=== PATIENT | female | born 1970 | race Caucasian/White ===

== ENCOUNTER 2020-12-04 20:08 | Emergency (ER) | payer OTHER ==
[2020-12-04 20:32] VITALS: BP 156/83; PULSE 105; BMI 61.4
== END 2020-12-04 22:38 | disposition left against medical advice (07) ==
LOC: JER 20:08
DX: N61.1 Abscess of the breast and nipple (principal)
CPT/HCPCS: 99282-25

== ENCOUNTER 2022-05-17 12:23 | Emergency (ER) | payer OTHER ==
[2022-05-17 12:50] VITALS: TEMP 98.1; BMI 60.4
[2022-05-17] MEDS ORDERED: SODIUM CHLORIDE 0.9% 500 ML INFUS.BAG IV ONE (13:34)
[2022-05-17] MEDS ORDERED: morphine CARPU-JECT 4 MG/1 ML DISP.SYRIN IVPUSH ONE (13:34)
[2022-05-17] MEDS ORDERED: morphine SULFATE 4 MG/ML VIAL ONE (14:06)
[2022-05-17 14:28] LABS: BASO % 0.9 % (0-2.0); EOS % 1.7 % (0-4.5); HEMATOCRIT 49.7 % (32.4-45.2); LYMPH % 18.9 % (8-40); MCH 24.7 pg (25.7-33.7); MCHC 32.1 g/dl (32.0-36.0); MEAN PLT VOLUME 8.6 fl (7.5-11.1); NEUT % 71.5 % (42.8-82.8); PLATELET COUNT 318 10^3/uL (134-434); RBC 6.45 M/mm3 (3.60-5.2); RDW 23.3 % (11.6-15.6)
[2022-05-17 14:52] LABS: ALBUMIN 3.4 g/dl (3.4-5.0); CALCIUM 9.9 mg/dL (8.5-10.1)
[2022-05-17 14:53] LABS: BLOOD UREA NITROGEN 10.2 mg/dL (7-18)
[2022-05-17 14:55] LABS: CREATININE 0.6 mg/dL (0.55-1.3)
[2022-05-17 14:57] LABS: BILIRUBIN,TOTAL 0.5 mg/dL (0.2-1); TOT PROT 7.6 g/dl (6.4-8.2)
[2022-05-17 19:51] VITALS: BP 126/80; PULSE 86
== END 2022-05-17 19:51 | disposition home or self-care (01) ==
LOC: JER 12:23
PROC: 3E033GC Introduction of Other Therapeutic Substance into Peripheral Vein, Percutaneous Approach (ICD-10-PCS; principal; 2022-05-17)
DX: R10.9 Unspecified abdominal pain (principal)
CPT/HCPCS: 36415; 71046-TC-FY; 74176-TC; 80053; 83605; 85025; 86850; 86900; 86901; 99285-25

== ENCOUNTER 2022-07-07 04:06 | Day surgery (SDC) | payer OTHER ==
[2022-07-04 09:49] VITALS: BMI 64.2
[2022-07-07] MEDS ORDERED: KETOROLAC TROMETHAMINE 30 MG/1 ML VIAL ONE (15:24)
[2022-07-07] MEDS ORDERED: MIDAZOLAM HCL 2 MG/2 ML SINGLE DOSE VIAL ONE ×2 (15:24→15:38)
[2022-07-07] MEDS ORDERED: ALBUTEROL SO4 0.083% IH SOL 2.5 MG/3 ML VIAL.NEB. NEB ONE ×2 (16:51→16:55)
[2022-07-07 17:40] VITALS: BP 127/77; PULSE 98; RESP 22; TEMP 97.9
== END 2022-07-07 17:30 | disposition home or self-care (01) ==
LOC: JASU-SURG 04:06
PROVIDERS: ATTEND Urology
PROC: 0TF4XZZ Fragmentation in Left Kidney Pelvis, External Approach (ICD-10-PCS; principal; 2022-07-07 14:30)
DX: N20.0 Calculus of kidney (principal)
CPT/HCPCS: 81025; 82962

== ENCOUNTER 2022-09-08 15:52 | Inpatient (IN) | payer OTHER ==
[2022-09-08] MEDS ORDERED: ALBUTEROL SO4 2.5/IPRATROPIUM 0.5 INH SOL 3 ML VIAL.NEB. NEB ONE ×2 (16:08→17:48)
[2022-09-08] MEDS ORDERED: ALBUTEROL SO4 0.083% IH SOL 2.5 MG/3 ML VIAL.NEB. NEB ONE ×2 (17:14→17:17)
[2022-09-08] MEDS: ALBUTEROL SO4 2.5/IPRATROPIUM 0.5 INH SOL 3 ML VIAL.NEB. NEB SCH ×4 (17:30→18:51)
[2022-09-08] MEDS ORDERED: methylPREDNISolone NA SUCC 125 MG/2 ML VIAL IVPUSH ONE (17:59)
[2022-09-08 18:12] LABS: VENOUS BASE EXCESS 0.8 mmol/L (-2-2); VENOUS O2 SATURATION 22.7 % (70-80); VENOUS PCO2 55.9 mmHg (38-52); VENOUS PH 7.322 (7.310-7.410)
[2022-09-08 18:32] LABS: BASO % 0.8 % (0-2.0); EOS % 1.8 % (0-4.5); HEMATOCRIT 48.3 % (32.4-45.2); HEMOGLOBIN 15.1 GM/dL (10.7-15.3); LYMPH % 14.6 % (8-40); MCH 23.6 pg (25.7-33.7); MCHC 31.4 g/dl (32.0-36.0); MEAN CELL VOLUME 75.3 fl (80-96); MEAN PLT VOLUME 8.4 fl (7.5-11.1); MONO % 8.4 % (3.8-10.2); NEUT % 74.4 % (42.8-82.8); PLATELET COUNT 320 10^3/uL (134-434); RBC 6.41 M/mm3 (3.60-5.2); RDW 22.4 % (11.6-15.6); WHITE BLOOD COUNT 10.9 K/mm3 (4.0-10.0)
[2022-09-08] MEDS ORDERED: methylPREDNISolone NA SUCC 125 MG/2 ML VIAL ONE (18:46)
[2022-09-08 18:51] LABS: ALBUMIN 2.8 g/dl (3.4-5.0); BLOOD UREA NITROGEN 11.9 mg/dL (7-18); CALCIUM 8.8 mg/dL (8.5-10.1)
[2022-09-08 18:54] LABS: CREATININE 0.7 mg/dL (0.55-1.3)
[2022-09-08 18:56] LABS: BILIRUBIN,TOTAL 0.4 mg/dL (0.2-1); TOT PROT 6.6 g/dl (6.4-8.2)
[2022-09-08 18:59] LABS: N-TERMINAL BNP 359.5 pg/ml (5-125)
[2022-09-08 19:07] LABS: ANISOCYTOSIS 2+; MACROCYTOSIS 0; TARGET CELLS 1+
[2022-09-08 19:16] LABS: INR 1.03 (0.83-1.09); PROTHROMBIN TIME (PATIENT) 11.8 SEC (9.7-13.0)
[2022-09-08] MEDS ORDERED: FUROSEMIDE 40 MG/4 ML INJECTABLE VIAL IVPUSH ONE (19:16)
[2022-09-08 19:19] LABS: ACTIVATED PTT 31.7 SECONDS (25.2-36.5)
[2022-09-08] MEDS ORDERED: VANCOMYCIN 1 GM in D5W (PRE-DOCKED) 1,000 MG/250 ML IVPB ONE (19:44)
[2022-09-08] MEDS ORDERED: PIPERACILLIN/TAZOB 4.5 GM 4.5 GM in DEXTROSE 5%-WATER 100 ML IVPB ONE (19:44)
[2022-09-08] MEDS ORDERED: FUROSEMIDE 40 MG/4 ML INJECTABLE VIAL ONE (21:54)
[2022-09-08] MEDS ORDERED: PIPERACILLIN/TAZOB 4.5 GM 4.5 GM/100 ML BAG IVPB ONE (22:41)
[2022-09-08] MEDS ORDERED: VANCOMYCIN/WATER FOR INJ (PEG) 1,000 MG/200 ML BAG IVPB ONE (23:23)
[2022-09-09 00:01] LABS: PH,URINE 5.5 (5.0-8.0); URINE APPEARANCE CLEAR; URINE BILIRUBIN NEGATIVE (NEGATIVE); URINE COLOR YELLOW; URINE GLUCOSE (UA) NEGATIVE (NEGATIVE); URINE KETONE NEGATIVE (NEGATIVE); URINE LEUK ESTERASE NEGATIVE (NEGATIVE); URINE NITRITE NEGATIVE (NEGATIVE); URINE PROTEIN NEGATIVE (NEGATIVE); URINE UROBILINOGEN 0.2 mg/dL (0.2-1.0)
[2022-09-09] MEDS ORDERED: ACETAMINOPHEN 1000 MG/100 ML BAG IVPB ONE (01:12)
[2022-09-09] MEDS ORDERED: KETOROLAC TROMETHAMINE 15 MG/ML VIAL IVPUSH ONE (01:13)
[2022-09-09] MEDS ORDERED: KETOROLAC TROMETHAMINE 15 MG/ML VIAL ONE (01:17)
[2022-09-09] MEDS ORDERED: ACETAMINOPHEN INJECTION 100 ML IVPB ONE (01:17)
[2022-09-09] MEDS ORDERED: LEVALBUTEROL HCL 0.31 MG/3 ML VIAL.NEB IH PRN (03:30)
[2022-09-09 04:16] VITALS: BMI 68.5
[2022-09-09] MEDS: methylPREDNISolone NA SUCC 40 MG/1 ML VIAL IVPUSH SCH ×3 (04:19→17:04)
[2022-09-09 09:27] LABS: HEMOGLOBIN 14.7 GM/dL (10.7-15.3); MCH 23.2 pg (25.7-33.7); MCHC 30.6 g/dl (32.0-36.0); MEAN CELL VOLUME 75.8 fl (80-96); MEAN PLT VOLUME 8.8 fl (7.5-11.1); PLATELET COUNT 331 10^3/uL (134-434); RBC 6.33 M/mm3 (3.60-5.2); RDW 22.3 % (11.6-15.6); WHITE BLOOD COUNT 12.6 K/mm3 (4.0-10.0)
[2022-09-09] MEDS ORDERED: VANCOMYCIN 1 GM in D5W (PRE-DOCKED) 1,000 MG/250 ML IVPB SCH (10:00)
[2022-09-09 10:08] LABS: ALBUMIN 2.9 g/dl (3.4-5.0); BLOOD UREA NITROGEN 14.8 mg/dL (7-18); CALCIUM 8.4 mg/dL (8.5-10.1); MAGNESIUM 2.3 mg/dL (1.8-2.4)
[2022-09-09 10:10] LABS: CREATININE 0.8 mg/dL (0.55-1.3)
[2022-09-09 10:13] LABS: BILIRUBIN,TOTAL 0.4 mg/dL (0.2-1)
[2022-09-09] MEDS: FUROSEMIDE 40 MG/4 ML INJECTABLE VIAL IVPUSH SCH (10:16)
[2022-09-09] MEDS: ENOXAPARIN NA (PORCINE) 40 MG/0.4 ML DISP.SYRIN SQ SCH (10:18)
[2022-09-09] MEDS: NICOTINE 14 MG/24 HOURS TOPICAL PATCH TD SCH (10:18)
[2022-09-09] MEDS: BUDESONIDE/FORMETEROL FUMARATE 80/4.5 mcg INHALER IH SCH ×2 (10:54→22:33)
[2022-09-09 11:24] LABS: ANISOCYTOSIS 1+; MACROCYTOSIS 0
[2022-09-09 16:54] LABS: ARTERIAL BLD GAS O2 SATURATION 97.4 % (95-98); ARTERIAL BLOOD GAS BASE EXCESS -0.9 mmol/L (-2-2); ARTERIAL BLOOD GAS PO2 105.7 mmHg (80-100); ARTERIAL BLOOD GAS pH 7.315 (7.350-7.450)
[2022-09-09 16:55] LABS: ALLENS TEST POSITIVE
[2022-09-09 16:56] LABS: VENT MODE CPAP
[2022-09-09] MEDS: PIPERACILLIN/TAZOB 3.375 GM 3.375 GM in DEXTROSE 5%-WATER - 50 ML IVPB SCH (17:05)
[2022-09-09] MEDS: MONTELUKAST NA 5 MG TAB.CHEW PO SCH (22:33)
[2022-09-10] MEDS: methylPREDNISolone NA SUCC 40 MG/1 ML VIAL IVPUSH SCH ×3 (00:59→17:17)
[2022-09-10] MEDS: PIPERACILLIN/TAZOB 3.375 GM 3.375 GM in DEXTROSE 5%-WATER - 50 ML IVPB SCH ×3 (00:59→17:17)
[2022-09-10 08:50] LABS: HEMATOCRIT 47.3 % (32.4-45.2); HEMOGLOBIN 14.3 GM/dL (10.7-15.3); MCH 23.2 pg (25.7-33.7); MCHC 30.3 g/dl (32.0-36.0); MEAN CELL VOLUME 76.8 fl (80-96); MEAN PLT VOLUME 8.3 fl (7.5-11.1); PLATELET COUNT 298 10^3/uL (134-434); RBC 6.15 M/mm3 (3.60-5.2); RDW 22.3 % (11.6-15.6); WHITE BLOOD COUNT 15.3 K/mm3 (4.0-10.0)
[2022-09-10 09:13] LABS: ALBUMIN 2.9 g/dl (3.4-5.0); BLOOD UREA NITROGEN 23.1 mg/dL (7-18); CALCIUM 9.1 mg/dL (8.5-10.1); MAGNESIUM 2.5 mg/dL (1.8-2.4)
[2022-09-10 09:15] LABS: PHOSPHOROUS 3.5 mg/dL (2.5-4.9)
[2022-09-10 09:16] LABS: CREATININE 0.6 mg/dL (0.55-1.3)
[2022-09-10 09:17] LABS: BILIRUBIN,TOTAL 0.4 mg/dL (0.2-1); TOT PROT 7.1 g/dl (6.4-8.2)
[2022-09-10] MEDS: FUROSEMIDE 40 MG/4 ML INJECTABLE VIAL IVPUSH SCH (09:46)
[2022-09-10] MEDS: ENOXAPARIN NA (PORCINE) 40 MG/0.4 ML DISP.SYRIN SQ SCH (09:46)
[2022-09-10] MEDS: BUDESONIDE/FORMETEROL FUMARATE 80/4.5 mcg INHALER IH SCH ×2 (09:47→21:13)
[2022-09-10] MEDS: NICOTINE 14 MG/24 HOURS TOPICAL PATCH TD SCH (09:47)
[2022-09-10 12:10] LABS: ANISOCYTOSIS 1+; MACROCYTOSIS 0
[2022-09-10] MEDS ORDERED: LORazepam 0.5 MG TABLET PO PRN (18:21)
[2022-09-10] MEDS: MONTELUKAST NA 5 MG TAB.CHEW PO SCH (21:13)
[2022-09-11] MEDS: methylPREDNISolone NA SUCC 40 MG/1 ML VIAL IVPUSH SCH ×3 (03:15→18:57)
[2022-09-11] MEDS: PIPERACILLIN/TAZOB 3.375 GM 3.375 GM in DEXTROSE 5%-WATER - 50 ML IVPB SCH ×3 (03:15→18:57)
[2022-09-11] MEDS: ENOXAPARIN NA (PORCINE) 40 MG/0.4 ML DISP.SYRIN SQ SCH (10:27)
[2022-09-11] MEDS: FUROSEMIDE 40 MG/4 ML INJECTABLE VIAL IVPUSH SCH (10:27)
[2022-09-11] MEDS: NICOTINE 14 MG/24 HOURS TOPICAL PATCH TD SCH (10:27)
[2022-09-11] MEDS: BUDESONIDE/FORMETEROL FUMARATE 80/4.5 mcg INHALER IH SCH ×2 (10:27→21:11)
[2022-09-11] MEDS: MONTELUKAST NA 5 MG TAB.CHEW PO SCH (21:11)
[2022-09-12] MEDS: methylPREDNISolone NA SUCC 40 MG/1 ML VIAL IVPUSH SCH ×3 (01:43→17:07)
[2022-09-12] MEDS: PIPERACILLIN/TAZOB 3.375 GM 3.375 GM in DEXTROSE 5%-WATER - 50 ML IVPB SCH ×3 (01:43→17:07)
[2022-09-12 08:29] LABS: BASO % 0.4 % (0-2.0); HEMATOCRIT 49.9 % (32.4-45.2); LYMPH % 6.7 % (8-40); MCH 22.9 pg (25.7-33.7); MEAN CELL VOLUME 76.5 fl (80-96); MONO % 5.6 % (3.8-10.2); NEUT % 87.3 % (42.8-82.8); PLATELET COUNT 296 10^3/uL (134-434); RBC 6.53 M/mm3 (3.60-5.2); RDW 22.5 % (11.6-15.6); WHITE BLOOD COUNT 13.4 K/mm3 (4.0-10.0)
[2022-09-12 08:56] LABS: BLOOD UREA NITROGEN 27.5 mg/dL (7-18); CALCIUM 8.9 mg/dL (8.5-10.1); MAGNESIUM 2.5 mg/dL (1.8-2.4)
[2022-09-12 08:59] LABS: CREATININE 0.7 mg/dL (0.55-1.3)
[2022-09-12 09:01] LABS: BILIRUBIN,TOTAL 0.6 mg/dL (0.2-1); TOT PROT 7.1 g/dl (6.4-8.2)
[2022-09-12] MEDS: FUROSEMIDE 40 MG/4 ML INJECTABLE VIAL IVPUSH SCH (09:03)
[2022-09-12] MEDS: BUDESONIDE/FORMETEROL FUMARATE 80/4.5 mcg INHALER IH SCH (09:04)
[2022-09-12] MEDS: ENOXAPARIN NA (PORCINE) 40 MG/0.4 ML DISP.SYRIN SQ SCH (09:04)
[2022-09-12] MEDS: NICOTINE 14 MG/24 HOURS TOPICAL PATCH TD SCH (09:04)
[2022-09-12 10:22] LABS: ANISOCYTOSIS 1+; MACROCYTOSIS 0
[2022-09-12 14:43] VITALS: BP 152/93; RESP 18; TEMP 98.1
[2022-09-12 15:09] VITALS: PULSE 67
== END 2022-09-12 19:38 | disposition left against medical advice (07) | DRG 133 ==
LOC: JER 15:52 → JERBED 19:43 → J4S 09-09 03:13
PROVIDERS: ADMIT Internal Medicine; ATTEND Nurse Practitioner Family
DX: J96.21 Acute and chronic respiratory failure with hypoxia (principal); I50.33 Acute on chronic diastolic (congestive) heart failure; J96.22 Acute and chronic respiratory failure with hypercapnia; J44.1 Chronic obstructive pulmonary disease with (acute) exacerbation; J84.9 Interstitial pulmonary disease, unspecified; E66.2 Morbid (severe) obesity with alveolar hypoventilation; J45.901 Unspecified asthma with (acute) exacerbation; Z68.44 Body mass index [BMI] 60.0-69.9, adult; I50.9 Heart failure, unspecified; L03.311 Cellulitis of abdominal wall; F17.210 Nicotine dependence, cigarettes, uncomplicated; F32.A Depression, unspecified; I51.7 Cardiomegaly; I87.2 Venous insufficiency (chronic) (peripheral); I89.0 Lymphedema, not elsewhere classified
CPT/HCPCS: 36415; 36600; 71045-TC-FY; 71275-TC; 74177-TC; 80053; 80061; 81003; 82803; 83036; 83735; 83880; 84100; 84443; 84484; 84703; 85025; 85610; 85730; 87040; 87086; 93005; 93010; 93306-TC; 93970-TC; 94010; 94660; 94761; 99285-25; C9803-CS; Q9967; U0003; U0005